=== PATIENT | female | born 1985 | race Two or more races ===

== ENCOUNTER 2023-09-15 15:45 | Emergency (ER) | payer MEDICAID ==
[~2023-09-15] VITALS: Ht 162.6 cm; Wt 68.0 kg
[2023-09-15] MEDS ORDERED: ACETAMINOPHEN 500 MG TAB PO ONE (17:15)
[2023-09-15 17:29] VITALS: BP 115/79; PULSE 77; RESP 16; TEMP 97.1; O2SAT 98
[2023-09-15] MEDS ORDERED: IBUP-1456 PO (17:39)
[2023-09-15] MEDS ORDERED: METH-1182 PO (17:39)
[2023-09-15 21:35] LABS: Urine Bacteria FEW /hpf (None Seen); Urine Blood 3+ /uL (Negative); Urine Clarity HAZY (Clear); Urine Color Yellow (Yellow); Urine Mucus FEW (None Seen); Urine Protein, UAD 1+ (Negative); Urine Specific Gravity 1.022 (1.001-1.035); Urine Urobilinogen Normal (Negative); Urine WBC 28 /hpf (0 - 5)
== END 2023-09-15 17:46 | disposition home or self-care (01) ==
LOC: ER 15:45
DX: S16.1XXA Strain of muscle, fascia and tendon at neck level, initial encounter (principal); S39.012A Strain of muscle, fascia and tendon of lower back, initial encounter; V49.9XXA Car occupant (driver) (passenger) injured in unspecified traffic accident, initial encounter; Y93.89 Activity, other specified; Y92.488 Other paved roadways as the place of occurrence of the external cause; Y99.8 Other external cause status
CPT/HCPCS: 72040; 72100; 81001